=== PATIENT | female | born 1950 | race Caucasian/White ===

== ENCOUNTER 2021-02-14 07:37 | Outpatient (CLI) | payer MEDICARE, OTHER ==
[2021-02-14 07:56] LABS: BASOPHILS # (AUTO) 0.1 10^3/uL (0.0-0.1); BASOPHILS % (AUTO) 1.4 %; EOSINOPHILS # (AUTO) 0.3 10^3/uL (0.0-0.7); EOSINOPHILS % (AUTO) 4.6 %; HCT - HEMATOCRIT 41.7 % (37.0-47.0); HGB - HEMOGLOBIN 13.3 g/dL (12.0-16.0); LYMPHOCYTES # (AUTO) 1.2 10^3/uL (1.5-3.5); MEAN CORPUSCULAR HEMOGLOBIN 29.6 pg (27.0-31.0); MEAN CORPUSCULAR HGB CONC 31.9 g/dL (32.0-36.0); MEAN CORPUSCULAR VOLUME 92.9 fL (81.0-99.0); MEAN PLATELET VOLUME 8.8 fL (7.9-10.8); MONOCYTES # (AUTO) 0.3 10^3/uL (0.0-1.0); MONOCYTES % (AUTO) 5.8 %; NEUTROPHILS % (AUTO) 67.5 %; PLT - PLATELET COUNT 242 10^3/uL (130-450); RED BLOOD COUNT 4.49 10^6/uL (4.20-5.40); RED CELL DISTRIBUTION WIDTH 14.1 % (12.0-15.0); WHITE BLOOD COUNT 5.9 x10^3/uL (4.8-10.8)
[2021-02-14 08:11] LABS: ALBUMIN 4.3 g/dL (3.2-5.5); ALBUMIN/GLOBULIN RATIO 1.3 (1.0-2.2); ALKALINE PHOSPHATASE 82 IU/L (42-121); ALT ALANINE AMINOTRANSFERASE 14 IU/L (10-60); AST ASPARTATE AMINOTRANSFERASE 18 IU/L (10-42); BILIRUBIN,TOTAL 0.6 mg/dL (0.2-1.0); BUN - BLOOD UREA NITROGEN 21 mg/dL (6-20); CALCIUM 9.3 mg/dL (8.5-10.3); CARBON DIOXIDE - CO2 28 mmol/L (21-32); CHLORIDE 101 mmol/L (101-111); CHOL/HDL RATIO 4.3 (<4.4); CHOLESTEROL 266 mg/dL; CREATININE 0.8 mg/dL (0.4-1.0); GFR - MDRD 71 (>89); GLUCOSE 110 mg/dL (70-100); HDL CHOLESTEROL 62 mg/dL; LDL CHOLESTEROL,CALCULATED 172 mg/dL; LDL/HDL RATIO 2.8 (<4.4); POTASSIUM 4.1 mmol/L (3.5-5.0); SODIUM 139 mmol/L (135-145); TOTAL PROTEIN 7.6 g/dL (6.7-8.2); TRIGLYCERIDES 160 mg/dL; VLDL CHOLESTEROL 32 mg/dL
== END 2021-02-14 07:38 | disposition home or self-care (01) ==
LOC: LAB 07:37
PROVIDERS: ATTEND Internal Medicine
DX: Z79.899 Other long term (current) drug therapy (principal)
CPT/HCPCS: 36415; 80053; 80061; 83721; 85025

== ENCOUNTER 2021-03-01 12:12 | Outpatient (CLI) | payer MEDICARE, OTHER ==
--- NOTE | 2021-03-02 01:13 | Ultrasound Report ---
PROCEDURE: Head or Neck Soft Tissue INDICATIONS: THYROID NODULE TECHNIQUE: Real-time scanning was performed of the thyroid gland, with image documentation. COMPARISON: None FINDINGS: Right: Thyroid lobe measures 6.4 x 2.1 x 2.3 cm, and is heterogeneous in echotexture. Left: Thyroid lobe measures 4.9 x 1.7 x 2.0 cm, and is heterogeneous in echotexture. Isthmus: 4 mm thick. Nodule number: One Location: Right mid thyroid lobe Size: 0.9 x 0.6 x 0.8 cm. Composition: Solid Echogenicity: Hypoechoic Shape: wider than tall. Margins: Smooth Echogenic foci: Smooth peripheral wall calcifications Total points: 4 ACR TI-RADS category: TI-RADS 4 (moderately suspicious) Nodule number: Two Location: Right inferior Size: 1.6 x 0.9 x 1.5 cm. Composition: Predominantly solid Echogenicity: Hypoechoic Shape: wider than tall. Margins: Smooth Echogenic foci: None Total points: 4 ACR TI-RADS category: TI-RADS 4 (moderately suspicious) Nodule number: Three Location: Lateral right mid thyroid lobe Size: 0.5 x 0.4 x 0.5 cm. Composition: Predominantly cystic Echogenicity: Anechoic Shape: wider than tall. Margins: Lobulated Echogenic foci: None Total points: 3 ACR TI-RADS category: TI-RADS 3 (mildly suspicious) Nodule number: Four Location: Lateral left mid thyroid lobe Size: 1.6 x 0.8 x 1.3 cm. Composition: Predominantly solid Echogenicity: Isoechoic Shape: wider than tall. Margins: Smooth Echogenic foci: None Total points: 3 ACR TI-RADS category: TI-RADS 3 (mildly suspicious) Nodule number: Five Location: Left inferior/mid thyroid lobe Size: 1.5 x 0.8 x 1.1 cm. Composition: Solid Echogenicity: Isoechoic Shape: wider than tall. Margins: Smooth Echogenic foci: None Total points: 3 ACR TI-RADS category: TI-RADS 3 (mildly suspicious) IMPRESSION: Heterogeneous thyroid gland with multiple thyroid nodules as described above. Thyroid no dules are TI-RADS 3 and TI-RAD 4 nodules with follow-up imaging recommendations as below. ACR TI-RADS definitions and recommendations: TI-RADS 1 (benign): 0 points. FNA not needed. TI-RADS 2 (not suspicious): 2 points. FNA not needed. TI-RADS 3 (mildly suspicious): 3 points. "FNA if 2.5 cm or larger, follow up if 1.5 cm or larger (at 1, 3, and 5 years). TI-RADS 4 (moderately suspicious): 4-6 points. "FNA if 1.5 cm or larger, follow up if 1 cm or larger (at 1, 2, 3, and 5 years). TI-RADS 5 (highly suspicious): 7 points or more. "FNA if 1 cm or larger, follow up if 0.5 cm or larger (every year for 5 years). Reviewed by: David Chambers MD on 03/02/2021 1:11 AM PDT Approved by: David Chambers MD on 03/02/2021 1:11 AM PDT Station ID: [id number]
== END 2021-03-01 12:13 | disposition home or self-care (01) ==
LOC: DI 12:12
PROVIDERS: ATTEND Internal Medicine
DX: E04.2 Nontoxic multinodular goiter (principal)

== ENCOUNTER 2021-04-15 13:36 | Outpatient (CLI) | payer MEDICARE, OTHER ==
--- NOTE | 2021-04-18 10:26 | Mammography Report ---
BILATERAL DIGITAL SCREENING MAMMOGRAM 3D/2D: 04/15/2021 CLINICAL: Baseline exam. Routine screening. No prior exams were available for comparison. The tissue of both breasts is predominantly fatty. No significant masses, calcifications, or other findings are seen in either breast. IMPRESSION: NEGATIVE There is no mammographic evidence of malignancy. A 1 year screening mammogram is recommended. This exam was interpreted at Station ID: [id number]. NOTE: For mammograms, a report in lay terms will be sent to the patient. Approximately 15% of breast malignancies will not be visualized mammographically. In the management of a palpable breast mass, a negative mammogram must not discourage biopsy of a clinically suspicious lesion. Electronically Signed By: Nancy yip/tano:04/15/2021 15:01:30 ACR BI-RADS Category 1: Negative 3341F PARENCHYMAL PATTERN: (F) - The breast(s) demonstrate(s) diffuse fatty replacement. BI-RADS CATEGORY: (1) - 1 RECOMMENDATION: (ANNUAL) - Recommend routine annual screening mammography. [id number] 1 year screening LATERALITY: (B)
== END 2021-04-15 13:37 | disposition home or self-care (01) ==
LOC: DI 13:36
PROVIDERS: ATTEND Internal Medicine
DX: Z12.31 Encounter for screening mammogram for malignant neoplasm of breast (principal)

== ENCOUNTER 2021-08-22 13:08 | Emergency (ER) | payer MEDICARE, OTHER ==
--- NOTE | 2021-08-22 13:50 | ED Physician Documentation ---
History of Present Illness - Stated complaint Stated Complaint: GLF - Chief complaint Chief Complaint: Trauma Ext - Additonal information Additional information: 71-year-old female presents emergency department for evaluation of left foot and left hip pain. She does have a history of MS typically walks with a cane. In addition to this she has a knee brace/immobilizer in use. She was walking yesterday and her foot slipped on a polished plaque that was on the ground. She fell into a harris. Did not strike her head or lose consciousness. With assistance she was able to get up and has been ambulatory but continues to have pain in the proximal hip and distal left foot. Review of Systems Constitutional: reports: Reviewed and negative Ears: reports: Reviewed and negative Throat: reports: Reviewed and negative Cardiac: reports: Reviewed and negative Respiratory: reports: Reviewed and negative GI: reports: Reviewed and negative : reports: Reviewed and negative Musculoskeletal: reports: Extremity pain, Joint pain PD PAST MEDICAL HISTORY - Past Medical History Past Medical History: Yes Cardiovascular: None Respiratory: None Neuro: Multiple sclerosis Endocrine/Autoimmune: None GI: None EVENT MGR: Other : None HEENT: None Psych: None Musculoskeletal: None Derm: None Other Past Medical History: endometrial cancer in remission - Past Surgical History Past Surgical History: Yes Ortho: Other /EVENT MGR: Hysterectomy - Present Medications Home Medications: Ambulatory Orders Medication Instructions Recorded Confirmed Biotin 5,000 mcg PO DAILY 10/05/20 08/22/21 Calcium Phosphate Dibas/Vit D3 1 tab PO DAILY 10/05/20 08/22/21 [Vitamin L2-Eqnnpcu-Bzvk Tablet] Estradiol [Heidi] 1 each TD ONCE 10/05/20 08/22/21 Loratadine 10 mg PO DAILY 10/05/20 08/22/21 Zolpidem [Ambien] 5 mg PO DAILY PM 10/05/20 08/22/21 - Allergies Allergies/Adverse Reactions: Allergies Allergy/AdvReac Type Severity Reaction Status Date / Time albumin human * Allergy Rash Verified 08/22/21 13:14 [From Rebif (with albumin)] interferon beta-1a Allergy Rash Verified 08/22/21 13:14 [From Rebif (with albumin)] - Social History Does the pt smoke?: No Smoking Status: Never smoker Does the pt drink ETOH?: No Does the pt have substance abuse?: No - Immunizations Immunizations are current?: Yes PD ED PE EXPANDED - General General: Alert, No acute distress, Well developed/nourished - Cardiac Cardiac: Regular Rate, Radial strong equal, Pedal strong equal, Cap refill < 2 sec - Respiratory Respiratory: Clear to ausultation tika. No: Distress, Labored - Extremities Extremities: Left hip (Tenderness of the proximal left trochanter. Minimal pain with external rotation. No leg shortening or malrotation. No ecchymosis), Left foot (Tenderness distal left lateral foot with mild ecchymosis and swelling. No deformity. 2+ DP pulse) Results - Vitals Vitals: Vital Signs - 24 hr 08/22/21 13:15 Temperature 36.8 C Heart Rate 102 H Respiratory 18 Rate Blood Pressure 149/71 H O2 Saturation 98 Oxygen O2 Source Room air - Rads (name of study) left hip Radiology: Final report received (No gross fracture on AP view. However secondary to patient's body habitus lateral view is nondiagnostic.) left foot Radiology: Final report received (Mildly displaced fifth metatarsal fracture) PD MEDICAL DECISION MAKING - ED course Complexity details: reviewed results, re-evaluated patient, considered dif ferential, d/w patient ED course: 71-year-old female presents emergency department for evaluation of acute left hip and left lateral foot pain. She does have a history of MS, typically uses a cane to ambulate and has a knee immobilizer in place at all times. After ground-level fall yesterday she has had some pain in the left hip though able to bear full weight as well as lateral foot. She does have a history of previous pelvic fracture status post splinting. AP view of the left hip showed no acute fracture but the lateral view was nondiagnostic. However she does have full range of motion internal and external rotation. Given ability to bear full weight suspicion for occult fracture is low. She does have a mildly displaced left fifth metatarsal fracture. Given mobility issues and wish to reduce the risk for further falls patient will be placed in a postop boot advised to follow-up with orthopedics. She is given a walker on discharge to aid in ambulation. She has declined analgesia. Emergent return precautions were discussed for worsening symptoms Departure - Departure Disposition: 01 Home, Self Care Clinical Impression: Fall from ground level Fracture of metatarsal of left foot, closed Qualifiers: Encounter type: initial encounter Metatarsal bone: fifth Fracture alignment: displaced Qualified Code(s): S92.352A - Displaced fracture of fifth metatarsal bone, left foot, initial encounter for closed fracture Contusion of left hip Qualifiers: Encounter type: initial encounter Qualified Code(s): S70.02XA - Contusion of left hip, initial encounter Condition: Stable Record reviewed to determine appropriate education?: Yes Instructions: ED Fx Foot Ch Follow-Up: Demetrius Kelly MD [Provider Admit Priv/Credential] - Comments: Suni you are seen today in the emergency department for pain in your left hip and left foot after fall yesterday. Unfortunately the x-ray of your left foot does show a mildly displaced fifth metatarsal fracture. Ideally this would be splinted with fiberglass splint but given your concerns for mobility and falls we are placing you in what is called a postop shoe. In order to help prevent falls we are giving you a walker. I do recommend that you attempt to walk on the heel of your foot while this heals. The x-ray of your hip does not show an obvious fracture. If you find that the pain in the hip is not improving you should return immediately to the ER for second evaluation. At that time we would consider a CT to definitively rule out a fracture. I have given you the name of Dr. Cho he is a orthopedic surgeon. You can request your primary doctor make a referral for follow-up in his office. In general I would recommend Tylenol or ibuprofen for pain and discomfort. You may also find that icing the hip and foot is helpful.
--- NOTE | 2021-08-22 14:13 | XRAY Report ---
PROCEDURE: Foot 2 View LT INDICATIONS: Left distal foot pain after fall TECHNIQUE: Partially visualized fixation kizzy is noted overlying the distal tibia. views of the foot were acquired. COMPARISON: None FINDINGS: Bones: There is a mildly displaced mid fifth metatarsal fracture. No suspicious bony lesions. Soft tissues: No tibiotalar joint effusion. Achilles tendon appears normal. IMPRESSION: Mildly displaced fifth metatarsal fracture. Reviewed by: Eliza Pabon MD on 08/22/2021 2:12 PM PDT Approved by: Eliza Pabon MD on 08/22/2021 2:12 PM PDT Station ID: [id number]
--- NOTE | 2021-08-22 14:14 | XRAY Report ---
PROCEDURE: Hip w/Pelvis 2-3V LT INDICATIONS: Proximal trochanter pain after fall TECHNIQUE: AP pelvis with lateral view(s) of the left hip(s). COMPARISON: None. FINDINGS: Limited exam secondary to patient body habitus. Bones: No fractures or dislocations. Pelvic ring appears intact. No suspicious bony lesions. Soft tissues: The visualized bowel gas pattern is normal. No suspicious soft tissue calcifications. IMPRESSION: No gross fracture on the AP view. However, secondary to patient body habitus, lateral vi ew is nondiagnostic. If concern persists, CT is recommended. Reviewed by: Eliza Pabon MD on 08/22/2021 2:13 PM PDT Approved by: Eliza Pabon MD on 08/22/2021 2:13 PM PDT Station ID: [id number]
[2021-08-22 14:59] VITALS: BP 136/92
== END 2021-08-22 14:49 | disposition home or self-care (01) ==
LOC: ED 13:08
DX: S92.352A Displaced fracture of fifth metatarsal bone, left foot, initial encounter for closed fracture (principal); S70.02XA Contusion of left hip, initial encounter; W01.198A Fall on same level from slipping, tripping and stumbling with subsequent striking against other object, initial encounter; Y93.01 Activity, walking, marching and hiking; G35 Multiple sclerosis
CPT/HCPCS: 99283; 99284

== ENCOUNTER 2021-08-25 08:03 | Outpatient (CLI) | payer MEDICARE, OTHER ==
--- NOTE | 2021-08-25 11:59 | XRAY Report ---
PROCEDURE: Hip 2 View LT INDICATIONS: HIP PAIN TECHNIQUE: 2 views of the left hip were acquired. COMPARISON: 08/22/2021. FINDINGS: Bones: No fractures or dislocations. No suspicious bony lesions. The visualized pelvic ring appear s intact. Status post bilateral sacroiliac joint arthrodesis. Soft tissues: No suspicious soft tissue calcifications or masses. IMPRESSION: No fracture. No acute osseous lesion. If there persistent symptoms or continued clinical concern for pathology, then repeat plain film radiographs (7-10 days) or advanced imaging (CT, MR, bone scan) snehal uld be considered for further evaluation. Reviewed by: Jazmine Choudhury MD, PhD on 08/25/2021 11:58 AM PDT Approved by: Jazmine Choudhury MD, PhD on 08/25/2021 11:58 AM PDT Station ID: [id number]
== END 2021-08-25 08:04 | disposition home or self-care (01) ==
LOC: DI.WOS 08:03
PROVIDERS: ATTEND Orthopaedic Surgery
DX: M25.552 Pain in left hip (principal)

== ENCOUNTER 2021-12-07 10:43 | Outpatient (CLI) | payer MEDICARE, OTHER ==
[2021-12-07 11:08] LABS: BASOPHILS % (AUTO) 0.7 %; EOSINOPHILS # (AUTO) 0.1 10^3/uL (0.0-0.7); EOSINOPHILS % (AUTO) 1.7 %; HCT - HEMATOCRIT 42.4 % (37.0-47.0); HGB - HEMOGLOBIN 13.7 g/dL (12.0-16.0); LYMPHOCYTES # (AUTO) 1.5 10^3/uL (1.5-3.5); LYMPHOCYTES % (AUTO) 25.5 %; MEAN CORPUSCULAR HEMOGLOBIN 29.1 pg (27.0-31.0); MEAN CORPUSCULAR HGB CONC 32.3 g/dL (32.0-36.0); MEAN CORPUSCULAR VOLUME 90.2 fL (81.0-99.0); MEAN PLATELET VOLUME 9.2 fL (7.9-10.8); MONOCYTES # (AUTO) 0.4 10^3/uL (0.0-1.0); MONOCYTES % (AUTO) 6.2 %; NEUTROPHILS # (AUTO) 3.9 10^3/uL (1.5-6.6); NEUTROPHILS % (AUTO) 65.4 %; PLT - PLATELET COUNT 244 10^3/uL (130-450); RED CELL DISTRIBUTION WIDTH 14.6 % (12.0-15.0); WHITE BLOOD COUNT 5.9 x10^3/uL (4.8-10.8)
[2021-12-07 11:30] LABS: ALBUMIN 4.4 g/dL (3.2-5.5); ALBUMIN/GLOBULIN RATIO 1.2 (1.0-2.2); ALKALINE PHOSPHATASE 71 IU/L (42-121); ALT ALANINE AMINOTRANSFERASE 13 IU/L (10-60); AST ASPARTATE AMINOTRANSFERASE 20 IU/L (10-42); BILIRUBIN,TOTAL 0.4 mg/dL (0.2-1.0); BUN - BLOOD UREA NITROGEN 22 mg/dL (6-20); CALCIUM 9.4 mg/dL (8.5-10.3); CARBON DIOXIDE - CO2 26 mmol/L (21-32); CHLORIDE 101 mmol/L (101-111); CHOL/HDL RATIO 5.6 (<4.4); CHOLESTEROL 341 mg/dL; CREATININE 0.7 mg/dL (0.4-1.0); GFR - MDRD 83 (>89); GLUCOSE 102 mg/dL (70-100); HDL CHOLESTEROL 61 mg/dL; LDL CHOLESTEROL,CALCULATED 245 mg/dL; POTASSIUM 3.9 mmol/L (3.5-5.0); SODIUM 136 mmol/L (135-145); TRIGLYCERIDES 173 mg/dL; VLDL CHOLESTEROL 35 mg/dL
[2021-12-08 03:09] LABS: HCV AB 0.1 s/co ratio (0.0-0.9)
== END 2021-12-07 10:44 | disposition home or self-care (01) ==
LOC: LAB 10:43
PROVIDERS: ATTEND Internal Medicine
DX: Z00.00 Encounter for general adult medical examination without abnormal findings (principal); C54.1 Malignant neoplasm of endometrium; C18.9 Malignant neoplasm of colon, unspecified; G35 Multiple sclerosis; Z11.59 Encounter for screening for other viral diseases; Z79.899 Other long term (current) drug therapy; E04.1 Nontoxic single thyroid nodule
CPT/HCPCS: 36415; 80053; 80061; 83721; 84443; 85025; 86803

== ENCOUNTER 2021-12-20 10:27 | Outpatient (CLI) | payer MEDICARE, OTHER ==
--- NOTE | 2021-12-20 16:29 | Ultrasound Report ---
PROCEDURE: Head or Neck Soft Tissue INDICATIONS: THYROID NODULE TECHNIQUE: Real time scanning was performed of the neck region of interest, with image documentation . COMPARISON: 03/01/2021 FINDINGS: The isthmus measures 4 to 5 mm. The right gland measures 1.9 x 1.8 x 5.2 cm. The left gland measures 2.3 x 1.8 x 4.3 cm. Nodule 1 measures 0.8 x 0.7 x 0.7 cm. This is stable. Right mid medial gland. Nodule 2 measures 1.3 x 0.9 x 1.2 cm. TR-4. This previously measured 1.6 x 0.9 x 1.5 cm. Right inferi or gland. Nodule 3 measures 0.9 x 0.4 x 0.6 cm. This is stable. Right mid lateral gland. Nodules 4 measures 1.7 x 1.0 x 1.0 cm. TR-3. This previously measured 1.6 x 0.8 x 1.3 cm. Left mid la teral gland. Nodule 5 measures 1.0 x 0.7 x 0.8 cm. TR-4. This previously measured 1.5 x 0.8 x 1.1 cm. Left inferio r gland. IMPRESSION: Multiple thyroid nodules as described above. Nodules 2, 4, and 5 meet criteria for follow-up. These a re either stable in size or decreased in size compared to 03/01/2021. Reviewed by: Adalid Beck MD on 12/20/2021 4:28 PM PDT Approved by: Adaldi Beck MD on 12/20/2021 4:28 PM PDT Station ID: [id number]
== END 2021-12-20 10:28 | disposition home or self-care (01) ==
LOC: DI 10:27
PROVIDERS: ATTEND Internal Medicine
DX: E04.2 Nontoxic multinodular goiter (principal)

== ENCOUNTER 2022-03-15 08:17 | Outpatient (CLI) | payer MEDICARE, OTHER ==
--- NOTE | 2022-03-15 12:10 | DEXA Report ---
PROCEDURE: Dexa Spine and/or Hip INDICATIONS: POST MENOPAUSAL TECHNIQUE: Dual energy x-ray absorptiometry (DXA) was performed on a [employer] System. Regions measur ed are the AP Spine, femoral neck, and if needed forearm. COMPARISON: None. FINDINGS: Lumbar Spine: Bone Mineral Density 0.966 g/cm/cm,T score -1.8, osteopenia Left Hip: Bone Mineral Density 0.543 g/cm/cm,T score -3.7, acute process Left Femoral Neck: Bone Mineral Density 0.560 g/cm/cm, T score -3.4, osteoporosis (T score greater or equal to -1.0: NORMAL) (T score from -1.1 to -2.4: OSTEOPENIA) (T score less than or equal to -2.5 to: OSTEOPOROSIS) Impression: 1. Osteoporosis puts the patient at a high-risk of fracture. Patients with diagnosis of osteoporosis or osteopenia should have regular bone mineral density assess ment. For those eligible for Medicare, routine testing is allowed once every 2 years. Testing frequ ency can be increased for patients who have rapidly progressing disease or for those who are receivin g medical therapy to restore bone mass. Reviewed by: Nancy Gonzales MD on 03/15/2022 12:09 PM PDT Approved by: Nancy Gonzales MD on 03/15/2022 12:09 PM PDT Station ID: [id number]
== END 2022-03-15 08:18 | disposition home or self-care (01) ==
LOC: DI 08:17
PROVIDERS: ATTEND Internal Medicine
DX: Z13.820 Encounter for screening for osteoporosis (principal); M81.0 Age-related osteoporosis without current pathological fracture; Z78.0 Asymptomatic menopausal state

== ENCOUNTER 2022-09-05 13:51 | Outpatient (CLI) | payer MEDICARE, OTHER ==
--- NOTE | 2022-09-06 10:36 | Mammography Report ---
BILATERAL DIGITAL SCREENING MAMMOGRAM 3D/2D: 09/05/2022 CLINICAL: Routine screening. Comparison is made to exam dated: 04/15/2021 mammogram - . Both breasts are almost entirely fatty (category a/<25% glandular tissue). No significant masses, calcifications, or other findings are seen in either breast. There has been no significant interval change. IMPRESSION: NEGATIVE There is no mammographic evidence of malignancy. A 1 year screening mammogram is recommended. Based on the Tyrer Cuzick model (a risk assessment model) the patients lifetime risk is 5.8% and her 10 year risk is 3.7%. According to the ACR, ACS, and NCCN guidelines, an annual breast MRI exam tiffany g with mammogram is recommended if the patients lifetime risk is 20% or greater. This exam was interpreted at Station ID: [id number]. NOTE: For mammograms, a report in lay terms will be sent to the patient. Approximately 15% of breast malignancies will not be visualized mammographically. In the management of a palpable breast mass, a negative mammogram must not discourage biopsy of a clinically suspicious lesion. Electronically Signed By: David Quick M.D. ateun/tano:09/05/2022 17:23:46 letter sent: No_Letter ACR BI-RADS Category 1: Negative 3341F PARENCHYMAL PATTERN: (F) - The breast(s) demonstrate(s) diffuse fatty replacement. BI-RADS CATEGORY: (1) - 1 Mammogram [id number] 1 year screening LATERALITY: (B)
== END 2022-09-05 13:52 | disposition home or self-care (01) ==
LOC: DI 13:51
PROVIDERS: ATTEND Internal Medicine Hematology & Oncology
DX: Z12.31 Encounter for screening mammogram for malignant neoplasm of breast (principal)

== ENCOUNTER 2023-07-17 10:45 | Outpatient (CLI) | payer MEDICARE, OTHER ==
--- NOTE | 2023-07-17 11:37 | XRAY Report ---
PROCEDURE: Chest 2V INDICATIONS: DYSPNEA TECHNIQUE: 2 views of the chest were acquired. COMPARISON: January 03, 2022 FINDINGS: Surgical changes and devices: None. Lungs and pleura: Bibasilar suspected chronic scarring and atelectasis. Diaphragmatic eventration se en on lateral view. No dense consolidation. No drainable pleural effusion. Mediastinum: Unchanged cardiac mediastinal contours. Bones and chest wall: Multiple rib fractures, nonacute appearing. Degenerative changes. IMPRESSION: No acute radiographic abnormality. No drainable pleural effusion or dense consolidation. Suspected bi basilar chronic scarring/atelectasis. Consider future surveillance CT given history of malignancy Reviewed by: Adalid Beck MD on 07/17/2023 11:35 AM PST Approved by: Adalid Beck MD on 07/17/2023 11:35 AM PST Station ID: [id number]
== END 2023-07-17 10:46 | disposition home or self-care (01) ==
LOC: DI 10:45
PROVIDERS: ATTEND Internal Medicine
DX: R06.00 Dyspnea, unspecified (principal)

== ENCOUNTER 2023-07-18 15:46 | Outpatient (CLI) | payer MEDICARE, OTHER ==
[2023-07-18] MEDS: ALBUTEROL 1 PUFF INH STA (17:53)
== END 2023-07-18 15:47 | disposition home or self-care (01) ==
LOC: RT 15:46
PROVIDERS: ATTEND Internal Medicine
DX: R06.00 Dyspnea, unspecified (principal)
CPT/HCPCS: 94060; 94727; 94729

== ENCOUNTER 2023-07-26 08:50 | Outpatient (CLI) | payer MEDICARE, OTHER ==
--- NOTE | 2023-07-26 15:47 | CT Report ---
PROCEDURE: Chest WO INDICATIONS: SHORT OF BREATH, history of endometrial cancer TECHNIQUE: A CT scan of the chest was performed. Intravenous contrast media was not administered. Images were re corded and evaluated at appropriate window settings. Reformats: axial MIP of the chest, coronal and s agittal. For radiation dose reduction, the following was used: automated exposure control, adjustment of mA and/or kV according to patient size. COMPARISON: Chest CT 01/03/2022 and 12/07/2020. FINDINGS: Image quality: Diagnostic. Chest wall and lower neck: No thyroid nodule which requires sonographic follow up. No axillary or sup raclavicular adenopathy by size. Lungs and pleura: No consolidation. No pleural effusions. No pneumothorax. Stable scattered calcifie d granulomas. No new or enlarging pulmonary nodule. No suspicious pulmonary nodules which require fol low up. Mediastinum: Heart size is normal. No pericardial effusion. No large vessel abnormality. No mediastin al adenopathy by size criteria. Nonenlarged calcified lymph nodes consistent with granulomatous dise ase. Bones: Bones are demineralized. Redemonstration of bilateral rib deformities. Discogenic degenerative changes of the visualized spine. Upper Abdomen: Splenic granulomas. Visualized upper abdominal solid organs appear normal absence of c ontrast. IMPRESSION: Compared to prior CT chest 01/03/2022, no significant interval change. No new or enlarging pulmonary no dules. Redemonstration of calcified granulomas and calcified lymph nodes, likely sequela of prior granulomat ous disease. Reviewed by: Erin Tellez MD on 07/26/2023 3:45 PM PST Approved by: Erin Tellez MD on 07/26/2023 3:45 PM PST Station ID: [id number]
== END 2023-07-26 08:51 | disposition home or self-care (01) ==
LOC: DI 08:50
PROVIDERS: ATTEND Internal Medicine
DX: J84.10 Pulmonary fibrosis, unspecified (principal); I89.8 Other specified noninfective disorders of lymphatic vessels and lymph nodes; R06.02 Shortness of breath; R94.2 Abnormal results of pulmonary function studies

== ENCOUNTER 2023-11-05 15:05 | Outpatient (CLI) | payer MEDICARE, OTHER ==
--- NOTE | 2023-11-06 10:23 | Mammography Report ---
BILATERAL DIGITAL SCREENING MAMMOGRAM 3D/2D: 11/05/2023 CLINICAL: Routine screening. Comparison is made to exams dated: 09/05/2022 mammogram and 04/15/2021 mammogram - [facility]. There are scattered areas of fibroglandular density in both breasts (category b / 25%-50% glandular t issue). There are new grouped heterogeneous calcifications in the right breast at 5 o'clock posterior depth. There are new grouped heterogeneous calcifications in the left breast central to the nipple anterior depth. No other significant masses or calcifications are seen in either breast. IMPRESSION: INCOMPLETE: NEEDS ADDITIONAL IMAGING EVALUATION The new grouped heterogeneous calcifications in the right breast at 5 o'clock posterior depth likely represent deodorant residue and are indeterminate. The new grouped heterogeneous calcifications in the left breast central to the nipple anterior depth resemble deodorant residue and are indeterminate. Recommend additional bilateral mammographic views after confirmation of adequate removal of potential deodorant or powders. If persistent, then recommend additional spot magnification views to better c haracterize calcifications. Based on the Tyrer Cuzick model (a risk assessment model) the patient's lifetime risk is 8.3% and her 10 year risk is 5.7%. According to the ACR, ACS, and NCCN guidelines, an annual breast MRI exam tiffany g with mammogram is recommended if the patient's lifetime risk is 20% or greater. This exam was interpreted at Station ID: [id number]. NOTE: For mammograms, a report in lay terms will be sent to the patient. Approximately 15% of breast malignancies will not be visualized mammographically. In the management of a palpable breast mass, a negative mammogram must not discourage biopsy of a clinically suspicious lesion. Electronically Signed By: David Quick M.D. aty/:11/06/2023 07:38:17 ACR BI-RADS Category 0: Incomplete 3340F PARENCHYMAL PATTERN: (A) - The breast(s) demonstrate(s) scattered fibroglandular densities. BI-RADS CATEGORY: (0) - 0 RECOMMENDATION: (ADDMAM) - Recommend additional mammographic views. [id number] Immediate follow-up LATERALITY: (B)
== END 2023-11-05 15:06 | disposition home or self-care (01) ==
LOC: DI 15:05
PROVIDERS: ATTEND Physician Assistant
DX: Z12.31 Encounter for screening mammogram for malignant neoplasm of breast (principal); R92.1 Mammographic calcification found on diagnostic imaging of breast; R92.323 Mammographic fibroglandular density, bilateral breasts

== ENCOUNTER 2023-11-22 14:50 | Outpatient (CLI) | payer MEDICARE, OTHER ==
--- NOTE | 2023-11-22 15:25 | DEXA Report ---
PROCEDURE: Dexa Spine and/or Hip INDICATIONS: OSTEOPOROSIS TECHNIQUE: Dual energy x-ray absorptiometry (DXA) was performed on a [employer] System. Regions measur ed are the AP Spine, femoral neck, and if needed forearm. COMPARISON: 03/15/2022 FINDINGS: Lumbar Spine: Bone Mineral Density: 0.973 g/cm/cm,T score: -1.7. There has been no statistically significant paz e in bone mineral density since the prior study. Left Femoral Neck: Bone Mineral Density: 0.520 g/cm/cm, T score: -3.7. Left Hip: Bone Mineral Density: 0.597 g/cm/cm,T score: -3.3. Since the most recent prior study, there has been a statistically significant increase in bone mineral density by 9.9percent. (T score greater or equal to -1.0: NORMAL) (T score from -1.1 to -2.4: OSTEOPENIA) (T score less than or equal to -2.5 to: OSTEOPOROSIS) Impression: By WHO criteria, this patient has osteoporosis. No statistical interval change in bone mineral density of the lumbar spine. Interval statistical incr ease in bone mineral density of the hip. Patients with diagnosis of osteoporosis or osteopenia should have regular bone mineral density assess ment. For those eligible for Medicare, routine testing is allowed once every 2 years. Testing frequ ency can be increased for patients who have rapidly progressing disease or for those who are receivin g medical therapy to restore bone mass. Reviewed by: Dakotah Silva MD on 11/22/2023 3:24 PM PDT Approved by: Dakotah Silva MD on 11/22/2023 3:24 PM PDT Station ID: [id number]
== END 2023-11-22 14:51 | disposition home or self-care (01) ==
LOC: DI 14:50
PROVIDERS: ATTEND Physician Assistant
DX: M81.0 Age-related osteoporosis without current pathological fracture (principal)